=== PATIENT | female | born 1995 | race Caucasian/White ===

== ENCOUNTER → 2017-06-03 | Outpatient (REF) | payer OTHER ==
[2017-06-03 13:26] LABS: CHOLESTEROL LEVEL 230 MG/DL (<200); CHOLESTEROL RISK RATIO 3.026 (<5); HDL CHOLESTEROL 76 MG/DL (>40); LDL CHOLESTEROL 136.8 MG/DL (<100); NON-HDL-C 154 MG/DL; TRIGLYCERIDES LEVEL 86 MG/DL (<150)
[2017-06-04 10:05] LABS: TOTAL 25(OH) VITAMIN D 50.8 NG/ML (30.0-100.0)
== END ==
LOC: M LAB REF 12:31
DX: F41.9 Anxiety disorder, unspecified (principal); E55.9 Vitamin D deficiency, unspecified; E78.5 Hyperlipidemia, unspecified

== ENCOUNTER 2017-06-07 22:35 | Emergency (ER) | payer OTHER ==
[2017-06-07] MEDS: diphenhydrAMINE INJ 50MG/ML VIAL (J1200) IV (23:30)
[2017-06-07] MEDS: methylPREDNISolone INJ 125 MG/2 ML VIAL (J2930) IV (23:30)
[2017-06-07] MEDS: FAMOTIDINE INJ 20MG/2ML VIAL (S0028) IV (23:39)
== END 2017-06-08 00:22 | disposition home or self-care (01) ==
LOC: M ED 06-08 00:22
DX: L50.8 Other urticaria (principal); T78.1XXA Other adverse food reactions, not elsewhere classified, initial encounter; E78.00 Pure hypercholesterolemia, unspecified; Z88.8 Allergy status to other drugs, medicaments and biological substances; Z88.0 Allergy status to penicillin; Z91.02 Food additives allergy status; Z79.3 Long term (current) use of hormonal contraceptives; Z79.899 Other long term (current) drug therapy
CPT/HCPCS: J1200

== ENCOUNTER 2017-10-07 15:29 | Emergency (ER) | payer OTHER | END 2017-10-07 17:49 | disposition home or self-care (01) | LOC: M ED 15:29 | DX: R51 Headache (principal); H57.09 Other anomalies of pupillary function | CPT/HCPCS: 70450 ==

== ENCOUNTER → 2017-12-22 | Outpatient (REF) | payer OTHER | LOC: M LAB REF 09:45 | DX: J06.9 Acute upper respiratory infection, unspecified (principal) ==